=== PATIENT | female | born 1950 | race Two or more races ===

== ENCOUNTER 2019-03-24 16:18 | Inpatient (IN) | payer OTHER ==
[~2019-03-24] VITALS: Ht 154.9 cm; Wt 49.4 kg
[2019-03-24] VITALS (16 sets, daily range): BP systolic 88–114; BP diastolic 47–64
[~2019-03-24 16:18] MED LIST: CEPH500C2 PO; PANT40TA2 PO; SUCR1ORA PO
[2019-03-24] MEDS ORDERED: PANTOPRAZOLE SODIUM 40 MG VIAL ONE (16:29)
[2019-03-24] MEDS ORDERED: IV NORMAL SALINE 1000 ML BAG IV ONE (16:30)
[2019-03-24] MEDS ORDERED: PANTOPRAZOLE SODIUM 40 MG VIAL IV ONE (16:30)
[2019-03-24] MEDS ORDERED: ONDANSETRON 4 MG/2 ML VIAL IV ONE ×2 (16:30→17:45)
[2019-03-24 16:43] LABS: BASOPHILS % (AUTO) 0.5 % (0.0-2.0); EOSINOPHILS # (AUTO) 0.1 K/uL (0.0-0.7); EOSINOPHILS % (AUTO) 1.1 % (0.0-7.0); LYMPHOCYTES # (AUTO) 1.8 K/uL (20.0-40.0); LYMPHOCYTES % (AUTO) 37.9 % (20.5-51.5); MEAN CORPUSCULAR HEMOGLOBIN 29.9 uug (24.7-32.8); MEAN CORPUSCULAR HGB CONC 33 g/dL (32.3-35.6); MEAN CORPUSCULAR VOLUME 91.4 fL (75.5-95.3); MONOCYTES # (AUTO) 0.6 K/uL (2.0-10.0); MONOCYTES % (AUTO) 11.5 % (0.0-11.0); NEUTROPHILS # (AUTO) 2.4 K/uL (1.8-8.9); PLATELET COUNT (AUTO) 71 K/uL (179-408); WHITE BLOOD COUNT (AUTO) 4.9 K/uL (3.8-11.8)
[2019-03-24 16:44] LABS: RED BLOOD CELL COUNT(AUTO) 1.95 MIL/uL (3.63-4.92)
[2019-03-24 16:48] LABS: HEMATOCRIT 17.8 % (31.2-41.9); HEMOGLOBIN 5.8 g/dL (10.9-14.3)
--- NOTE | 2019-03-24 16:48 | NUR ---
CALL PLACED TO [facility]. VITALS PROVIDED.
[2019-03-24 16:52] LABS: CREATININE 0.7 mg/dL (0.6-1.3); POTASSIUM 3.8 mmol/L (3.5-5.1)
--- NOTE | 2019-03-24 16:59 | NUR ---
[place] speaking with Neto YAÑEZ MD.
[2019-03-24 17:03] LABS: BILIRUBIN,DIRECT 1.2 mg/dL (0.0-0.2); BILIRUBIN,TOTAL 1.6 mg/dL (0.2-1.0)
--- NOTE | 2019-03-24 17:10 | NUR ---
Patient is resting comfortably in bed with eyes closed. Awaiting for bed assignment from CCU to tx pt.
--- NOTE | 2019-03-24 17:22 | NUR ---
ERMD explained and signed consent for blood tx, pt agreed and signed the transfusion consent.
--- NOTE | 2019-03-24 17:28 | NUR ---
Call placed to [facility] for GI Consult, Dr. Shea has been paged.
--- NOTE | 2019-03-24 17:34 | NUR ---
POL[place] speaking with Dr. Shea, (GI).
[2019-03-24] MEDS ORDERED: ONDANSETRON 4 MG/2 ML VIAL ONE (17:37)
[2019-03-24] MEDS ORDERED: MORPHINE SULFATE 2 MG/1 ML DISP.SYRIN IV PRN (17:45)
[2019-03-24] MEDS ORDERED: ACETAMINOPHEN 650 MG SUPP.RECT RC PRN (17:45)
[2019-03-24] MEDS ORDERED: NOREPINEPHRINE BITARTRATE 4 MG in IV DEXTROSE 5% 250 ML IV ONE (17:45)
--- NOTE | 2019-03-24 17:47 | NUR ---
Blood transfusion started, pt denies pain and is afbrile.
[2019-03-24 17:53] LABS: IRON, SERUM 17 ug/dL (50-175)
--- NOTE | 2019-03-24 18:05 | NUR ---
Spoke to dry house operator(Casey Graf) regarding CCU bed, per Casey, pt will be transfered after change of shift. Charge nurse made aware.
[2019-03-24 18:07] LABS: BAND % (MANUAL) 1 % (0-10); LYMPHOCYTES % (MANUAL) 31 % (20-40); MONOCYTES % (MANUAL) 7 % (2-10); NEUTROPHILS % (MANUAL) 61 % (42-75)
--- NOTE | 2019-03-24 18:21 | NUR ---
Continue w/ blood tx, no adverse reaction noted sofar. Pt is resting w/ both eyes closed, NAD noted.
[2019-03-24] MEDS ORDERED: IV NS 1000 ML 1,000 ML IV ONE (18:48)
--- NOTE | 2019-03-24 19:20 | NUR ---
Completed 1st unit of PRBC, pt tolorated well, stating feeling better. No adverse reaction noted.
--- NOTE | 2019-03-24 19:46 | NUR ---
PATIENT TRANSFERRED VIA GURNEY FROM ER. PATIENT ACTIVELY VOMITING INTO EMESIS BAG PRESENTING BRIGHT RED BLOOD WITH CLOTS. PATIENT IS ALERT AND ORIENTED. PATIENT CONNECTED TO IMMIGRATION ATTORNEY AND 2L OXYGEN VIA NASAL CANULA STARTED.
[2019-03-24] MEDS ORDERED: CEFTRIAXONE 1 G VIAL IV SCH (20:00)
[2019-03-24] MEDS: IV D5/ 0.9% NACL 1,000 ML IV PRN (20:28)
[2019-03-24] MEDS: OCTREOTIDE ACETATE DRIP 1,250 MCG in IV NORMAL SALINE 247.5 ML IV SCH (20:46)
[2019-03-24] MEDS: CEFTRIAXONE 1 G in IV DEXTROSE 5% 50 ML IV SCH (21:13)
--- NOTE | 2019-03-24 21:35 | NUR ---
dr. wilson notified of emesis w/ blood clots approx 400cc, w/ orders. ngt [place] sump inserted on r nare connected to low intermitent suction. irrigated w/ cold ns.
[2019-03-24] MEDS ORDERED: NOREPINEPHRINE BITARTRATE 8 MG in IV DEXTROSE 5% 500 ML IV PRN (21:45)
[2019-03-25] VITALS (26 sets, daily range): BP systolic 89–130; BP diastolic 50–75
--- NOTE | 2019-03-25 00:15 | NUR ---
picc line inserted on kristina.cxr done to confirm placement.
[2019-03-25 05:13] LABS: MONOCYTES # (AUTO) 0.6 K/uL (2.0-10.0)
[2019-03-25 05:15] LABS: BASOPHILS % (AUTO) 0.1 % (0.0-2.0); EOSINOPHILS % (AUTO) 0.1 % (0.0-7.0); LYMPHOCYTES # (AUTO) 1.1 K/uL (20.0-40.0); LYMPHOCYTES % (AUTO) 16.1 % (20.5-51.5); MEAN CORPUSCULAR HEMOGLOBIN 30.5 uug (24.7-32.8); MEAN CORPUSCULAR HGB CONC 34 g/dL (32.3-35.6); MEAN CORPUSCULAR VOLUME 90.1 fL (75.5-95.3); MONOCYTES % (AUTO) 9.7 % (0.0-11.0); NEUTROPHILS # (AUTO) 4.9 K/uL (1.8-8.9); PLATELET COUNT (AUTO) 57 K/uL (179-408); WHITE BLOOD COUNT (AUTO) 6.6 K/uL (3.8-11.8)
[2019-03-25 05:19] LABS: HEMATOCRIT 20.7 % (31.2-41.9)
[2019-03-25 05:29] LABS: BILIRUBIN,TOTAL 3.9 mg/dL (0.2-1.0); CREATININE 0.6 mg/dL (0.6-1.3); MAGNESIUM 1.6 mg/dL (1.8-2.4); PHOSPHOROUS 2.9 mg/dL (2.5-4.9); POTASSIUM 4.8 mmol/L (3.5-5.1); TOTAL PROTEIN, SERUM 5.4 g/dL (6.4-8.2)
--- NOTE | 2019-03-25 05:30 | NUR ---
am care done. oral care done. repositioned self for comforts.
--- NOTE | 2019-03-25 06:22 | NUR ---
DR JOSE NOTIFIED OF HGB-7.0/HCT-20.7 & PT WILL HAVE EGD THIS AM @ 1000, STATED THAT H & H RESULT IS OK.
[2019-03-25 06:24] LABS: LYMPHOCYTES % (MANUAL) 15 % (20-40); MONOCYTES % (MANUAL) 6 % (2-10); NEUTROPHILS % (MANUAL) 79 % (42-75)
--- NOTE | 2019-03-25 06:51 | NUR ---
PT REMAINS NPO FOR EGD @ 1000.
--- NOTE | 2019-03-25 07:25 | NUR ---
DR SOTO CALLED RE: G-7.0/20.7 & WILL CALL BACK.
--- NOTE | 2019-03-25 07:30 | NUR ---
RECIEVED PT LYING IN BED AWAKE, ALERT AND ORIENTEDX3. VERY PLEASANT LADY. COLOR IS SLIGHTLY PALE AND YELLOWISH. STATED THAT SHE IS FEELING WEAK BUT DENIES ANY DIZZINESS. HR IS SR NO ECTOPY. NO APPARENT RESPIRATORY DISTRESS NOTED. O2 ON 2LNC AND SATURATING WELL. LUNGS ARE CLEAR. NGT RIGHT NARES INTACT ANDIN PLACE. CONNECTED TO LOW CONTINOUS SUCTION, NO DRAINAGE AT THIS TIME. SOME BLACKISH/REDDISH FLUID ON THE TUBINGS NOTED. PT DENIES NAUSEA OR VOMITING BLOOD AT THIS TIME. ABDOMEN IS SOFT WITH GOOD BS NOTED.
--- NOTE | 2019-03-25 08:05 | NUR ---
DR SOTO CALLED BACK AND ORDERED 1 MORE UNIT OF PRBC, AND 10MG OF REGLAN IV. 0820 REGLAN IS GIVEN SLOW IVP ORDERED.
[2019-03-25] MEDS ORDERED: METOCLOPRAMIDE HCL 10 MG/2 ML VIAL IV ONE (08:13)
[2019-03-25] MEDS: PANTOPRAZOLE SODIUM 40 MG VIAL IV SCH ×2 (08:29→20:31)
[2019-03-25] MEDS: IV D5/ 0.9% NACL 1,000 ML IV PRN (08:29)
--- NOTE | 2019-03-25 09:15 | NUR ---
HGB 7.0 1 UNIT OF PRBC STARTED ORDERED VIA THE PICC LINE JED INFUSING WELL.
--- NOTE | 2019-03-25 10:50 | NUR ---
PT WENT DOWN TO SURGERY FOR EGD VIA BED ACCOMPANIED BY RN'S. BLOOD TRANSFUSION STILL IN PROGRESS. SANDOSTATIN DRIP STILL CONTINOUSLY RUNNING. CONDITION IS STABLE.
[2019-03-25] MEDS ORDERED: INSULIN REGULAR, HUMAN 300 UNIT/3 ML VIAL SQ PRN (11:45)
[2019-03-25] MEDS ORDERED: DEXTROSE 50% 50 ML DISP.SYRIN IV PRN ×2 (11:45→20:15)
--- NOTE | 2019-03-25 12:38 | NUR ---
Patient back from Surgery via bed, accompanied by Recovery R.N. vitals HR of 82, sbp of 112/75, 98% saturation on 2L nasal canula. IV infusing with sandostatin. no c/of pain. Patient assisted to bed childress X2 and passed 2 moderate bm's coffee brown in color.
[2019-03-25] MEDS: MAGNESIUM SULFATE/D5W 100 ML IV SCH ×2 (13:53→15:29)
[2019-03-25] MEDS: BLOOD SUGAR DIAGNOSTIC 1 EACH STRIP VI SCH ×3 (14:02→20:26)
--- NOTE | 2019-03-25 16:00 | NUR ---
PT HAS A TOTAL BM OF 4, BLACKISH REDDISH BM. PT DENIES ANY PAIN. ABLE TO EAT CLEAR SOUP. VSS.
--- NOTE | 2019-03-25 20:00 | NUR ---
received pt. awake,alert & oriented x4, denies discomforts. on o2 2 2L NC W/ o2 sat of 98%. ivf d5ns @ 80 cc/hr on kristina picc line. on sandostatin drip @ 10cc/hr. c-scope sr. not in any distress.
[2019-03-25] MEDS: OCTREOTIDE ACETATE DRIP 1,250 MCG in IV NORMAL SALINE 247.5 ML IV SCH (20:01)
[2019-03-25] MEDS: INSULIN REGULAR, HUMAN 300 UNIT/3 ML VIAL SQ PRN (20:28)
[2019-03-25] MEDS ORDERED: SIMETHICONE 40 MG/0.6 ML, 30ML BOTTLE MC ONE (20:54)
[2019-03-25] MEDS ORDERED: IV NORMAL SALINE 1000 ML BAG IV ONE (20:54)
[2019-03-25] MEDS ORDERED: IRR STERIL WATER FOR IRR 1000 ML BOTTLE IR ONE (20:54)
[2019-03-25] MEDS ORDERED: PROPOFOL 200 MG/20 ML BOTTLE IV ONE (20:54)
[2019-03-25] MEDS: CEFTRIAXONE 1 G in IV DEXTROSE 5% 50 ML IV SCH (21:01)
--- NOTE | 2019-03-25 22:05 | NUR ---
Report received from endorsing KESHA Toure in CCU. Pt will be transferred to Room 314 downgraded to telemetry status.
--- NOTE | 2019-03-25 22:19 | NUR ---
transfered via w/c to [facility] as telemetry pt., report given to sarabjit parker.
--- NOTE | 2019-03-25 22:25 | NUR ---
Received patient via wheelchair accompanied by tech into Room 314. Pt arrived with quality assurance monitor chassis on. Pt awake, alert and oriented x4. Assisted to bed from wheelchair, gait is steady. Denies pain and discomfort on arrival. Telemetry showing SR. lungs are clear. Vital signs as noted. Sandostatin drip infusing at 10ml/hr and D5NS infusing at 80ml/hr; both to right upper arm triple lumen PICC. Skin intact. Reported 3 BMs during the day shift today. Denies vomiting since procedure today. Oriented to room, use of call light, TV remote and surroundings. No acute distress noted. Pt noted with cell phone, pants, blouse, underwear and shoes on arrival. Denies additional personal belongings.
--- NOTE | 2019-03-25 22:35 | NUR ---
Assisted pt to the bathroom to void, gait steady.
[2019-03-26] VITALS: BP 114/51
--- NOTE | 2019-03-26 03:20 | NUR ---
Report given to receiving KESHA Reed. Informed of Sandostatin drip and IV D5NS infusing to right upper arm site. Pt sleeping at this time. No Acute distress noted.
[2019-03-26 04:00] VITALS: BP 120/57
[2019-03-26] MEDS: IV D5/ 0.9% NACL 1,000 ML IV PRN ×2 (04:38→18:35)
--- NOTE | 2019-03-26 05:23 | NUR ---
No changes t/o shift. Patient vitals stable. Denies pain. IVF infusing. Patent and intact. Remains in room air. Made a BM this AM but I was not able to witness the appearance of the stool. Safety and comfort measures maintained t/o shift. All meds given as ordered. All needs met.
[2019-03-26] MEDS: BLOOD SUGAR DIAGNOSTIC 1 EACH STRIP VI SCH ×3 (06:31→17:45)
[2019-03-26 07:08] LABS: BASOPHILS % (AUTO) 0.4 % (0.0-2.0); EOSINOPHILS # (AUTO) 0.2 K/uL (0.0-0.7); EOSINOPHILS % (AUTO) 2.8 % (0.0-7.0); HEMATOCRIT 23.4 % (31.2-41.9); HEMOGLOBIN 7.9 g/dL (10.9-14.3); LYMPHOCYTES # (AUTO) 1.2 K/uL (20.0-40.0); LYMPHOCYTES % (AUTO) 20.9 % (20.5-51.5); MEAN CORPUSCULAR HGB CONC 34 g/dL (32.3-35.6); MEAN CORPUSCULAR VOLUME 86.2 fL (75.5-95.3); MONOCYTES # (AUTO) 0.7 K/uL (2.0-10.0); MONOCYTES % (AUTO) 12.5 % (0.0-11.0); NEUTROPHILS # (AUTO) 3.6 K/uL (1.8-8.9); NEUTROPHILS % (AUTO) 63.4 % (38.5-71.5); PLATELET COUNT (AUTO) 60 K/uL (179-408); RED BLOOD CELL COUNT(AUTO) 2.72 MIL/uL (3.63-4.92); WHITE BLOOD COUNT (AUTO) 5.6 K/uL (3.8-11.8)
[2019-03-26 07:20] LABS: BILIRUBIN,TOTAL 3.3 mg/dL (0.2-1.0); CREATININE 0.5 mg/dL (0.6-1.3); MAGNESIUM 2.1 mg/dL (1.8-2.4); PHOSPHOROUS 2.2 mg/dL (2.5-4.9); TOTAL PROTEIN, SERUM 5.8 g/dL (6.4-8.2)
[2019-03-26 08:12] LABS: EOSINOPHILS % (MANUAL) 3 % (0-8); LYMPHOCYTES % (MANUAL) 21 % (20-40); MONOCYTES % (MANUAL) 6 % (2-10); NEUTROPHILS % (MANUAL) 70 % (42-75)
[2019-03-26] MEDS: PANTOPRAZOLE SODIUM 40 MG VIAL IV SCH (08:57)
--- NOTE | 2019-03-26 11:20 | NUR ---
- Recommend adding MVI to aid in liver detoxification. Discussed with nurse Osborn, and pt agrees with idea. Addendum: 03/26/19 at [address] Amended: Links added.
[2019-03-26 11:22] VITALS: BP 123/60
[2019-03-26] MEDS ORDERED: NEUTRA PHOS PACKET PO ONE (11:45)
[2019-03-26] MEDS: INSULIN REGULAR, HUMAN 300 UNIT/3 ML VIAL SQ PRN (11:55)
[2019-03-26] MEDS ORDERED: PANT40VI IV (13:35)
[2019-03-26] MEDS ORDERED: ACET650S24 RC (13:35)
[2019-03-26] MEDS ORDERED: ONDA4VIA52 IV (13:42)
[2019-03-26 15:10] VITALS: BP 129/57
[2019-03-26 20:00] VITALS: BP 145/71
--- NOTE | 2019-03-26 20:50 | NUR ---
PATIENT RECEIVED AT 1930 AND DISCHARGED IN STABLE CONDITION. A/OX4. REPORT GIVEN TO MARIA R CHEN RN. V/S STABLE, BELONGINGS GIVEN TO PATIENT, REPORT GIVEN TO AMBULANCE AND TRANSFERRED VIA GURNEY. DISCHARGE PAPERS GIVEN TO PATIENT.
== END 2019-03-26 20:55 | disposition short-term general hospital (02) ==
LOC: ER 16:20 → CCU 19:16 → MEDSURG3 03-25 22:16 → TELE3 03-25 22:22
PROVIDERS: ADMIT Internal Medicine; ATTEND Internal Medicine
PROC: 05HY33Z Insertion of Infusion Device into Upper Vein, Percutaneous Approach (ICD-10-PCS; principal; 2019-03-24)
PROC: 0D9670Z Drainage of Stomach with Drainage Device, Via Natural or Artificial Opening (ICD-10-PCS; principal; 2019-03-24)
PROC: 30233N1 Transfusion of Nonautologous Red Blood Cells into Peripheral Vein, Percutaneous Approach (ICD-10-PCS; principal; 2019-03-24)
PROC: 06L38CZ Occlusion of Esophageal Vein with Extraluminal Device, Via Natural or Artificial Opening Endoscopic (ICD-10-PCS; 2019-03-25)
DX: K74.69 Other cirrhosis of liver (principal); E43 Unspecified severe protein-calorie malnutrition; I85.11 Secondary esophageal varices with bleeding; R57.1 Hypovolemic shock; R57.8 Other shock; K76.6 Portal hypertension; D68.9 Coagulation defect, unspecified; D69.59 Other secondary thrombocytopenia; I48.0 Paroxysmal atrial fibrillation; D62 Acute posthemorrhagic anemia; K92.2 Gastrointestinal hemorrhage, unspecified; K44.9 Diaphragmatic hernia without obstruction or gangrene; K31.89 Other diseases of stomach and duodenum; K21.9 Gastro-esophageal reflux disease without esophagitis; I70.0 Atherosclerosis of aorta; I10 Essential (primary) hypertension; F32.9 Major depressive disorder, single episode, unspecified; Z68.20 Body mass index [BMI] 20.0-20.9, adult; F41.9 Anxiety disorder, unspecified; Z87.11 Personal history of peptic ulcer disease; R73.9 Hyperglycemia, unspecified
CPT/HCPCS: 36415; 36569; 70030-TC; 71045; 83550; 83735; 84100; 85025; 85730; 86850; 86900; 86901; 86920; 93005; A4217; A4663; C9113; G0378; J0696; J1815; J2270; J2354; J2405; J2765; J3475; J3490; J7030; J7040; J7042; J7050; J7060; P9016-BL; P9021